=== PATIENT | female | born 1940 | race Caucasian/White ===

== ENCOUNTER 2017-03-18 15:45 | Emergency (ER) | payer MEDICARE ==
[2017-03-18 15:53] VITALS: BP 153/85
--- NOTE | 2017-03-18 16:39 | UC ---
Complaint Female HPI - HPI Summary HPI Summary: 77 y/o female presents to the urgent care c/o frequency on urination with pelvic pressure for the past 3 days. Pt reports she has HX of chronic back pain with degenerative disc disease and arthritis. She has mild lower back pain , but she states this is her usual for his chronic back pain. Pt also states she has HX of Pelvic prolapse with a pessary. she has a f/u appt for US on 04/05. Pt denies fever, burning on urination, vaginal discharge, SOB, chest pain , abdominal pain or pelvic pain, N/V/D. She wants to make sure she doesn't have a UTI. - History Of Current Complaint Chief Complaint: UCGU Stated Complaint: UTI Time Seen by Provider: 03/18/17 16:11 Hx Obtained From: Patient Hx Last Menstrual Period: N/A ?: No Onset/Duration: Lasting Days - 3, Still Present Timing: Constant, Lasting Days - 3 days Severity Initially: Mild Severity Currently: Mild Pain Intensity: 0 Pain Scale Used: 0-10 Numeric Aggravating Factor(s): Urination - frequency Alleviating Factor(s): Nothing Associated Signs And Symptoms: Positive: Negative. Negative: Fever, Back Pain, Vaginal Bleeding/Discharge, Vaginal Discharge, Nausea, Vomiting(# Of Episodes =) , Genital Swelling, Genital Blisters - Risk Factors Ectopic Risk Factor: Negative Ovarian Torsion Risk Factor: Negative - Allergies/Home Medications Allergies/Adverse Reactions: Allergies Allergy/AdvReac Type Severity Reaction Status Date / Time No Known Allergies Allergy Verified 03/18/17 15:53 PMH/Surg Hx/FS Hx/Imm Hx Previously Healthy: Yes Endocrine History: Dyslipidemia Cardiovascular History: Hypertension - Surgical History Surgical History: Yes Surgery Procedure, Year, and Place: TONSILECTOMY- 1945; CATARACTS - 2009; PESSARY 2010;THYROID NODULES THAT WAS TREATED WITH IODINE - 1999 - Family History Known Family History: Positive: Cardiac Disease, Hypertension - Social History Occupation: Retired Lives: With Family Alcohol Use: Occasionally Substance Use Type: None Smoking Status (MU): Former Smoker Type: Cigarettes When Did the Patient Quit Smoking/Using Tobacco: 50 years ago Household Exposure Type: Cigarettes - Immunization History Most Recent Influenza Vaccination: 2014/2015 Review of Systems Constitutional: Negative Skin: Negative Eyes: Negative ENT: Negative Respiratory: Negative Cardiovascular: Negative Gastrointestinal: Negative Genitourinary: Frequency - with hesitancy Motor: Negative Neurovascular: Negative Musculoskeletal: Negative Neurological: Negative Psychological: Negative Is Patient Immunocompromised?: No All Other Systems Reviewed And Are Negative: Yes Physical Exam Triage Information Reviewed: Yes Appearance: Well-Appearing, No Pain Distress, Well-Nourished Vital Signs: Initial Vital Signs Temp 98.8 F 03/18/17 15:49 Pulse 71 03/18/17 15:49 Resp 18 03/18/17 15:49 BP 153/85 03/18/17 15:49 Pulse Ox 99 03/18/17 15:49 Vital Signs Reviewed: Yes Eye Exam: Normal Eyes: Positive: Conjunctiva Clear - PERRLA, EOMI ENT Exam: Normal ENT: Positive: Normal ENT inspection, Hearing grossly normal, Pharynx normal, TMs normal Neck exam: Normal Neck: Positive: Supple, Nontender, No Lymphadenopathy Respiratory Exam: Normal Respiratory: Positive: Chest non-tender, Lungs clear, Normal breath sounds Cardiovascular Exam: Normal Cardiovascular: Positive: RRR, No Murmur, Pulses Normal, Brisk Capillary Refill Abdominal Exam: Normal Abdomen Description: Positive: Nontender, No Organomegaly, Soft. Negative: CVA Tenderness (R), CVA Tenderness (L) Bowel Sounds: Positive: Present Musculoskeletal Exam: Normal Musculoskeletal: Positive: Strength Intact, ROM Intact, No Edema Neurological Exam: Normal Psychological Exam: Normal Skin Exam: Normal Complaint Female Dx - Course Course Of Treatment: 77 y/o female presents to the urgent care c/o frequency on urination with pelvic pressure for the past 3 days. Pt reprots she has HX of chronic back pain with degenerative disc disease and arthritis. She has mild lower back pain, but she states this is her usual for his chronic back pain. Pt also states she has HX of Pelvic prolapse with a pessary. she has a f/u appt for US on 04/05/2017. Pt denies fever, burning on urination, vaginal discharge, SOB, chest pain, abdominal pain or pelvic pain, N/V/D. She wants to make sure she doesn't have a UTI. hx obtained. UA ordered, result: trace intact blood. PE WNL,Pt with negative CVA tenderness on examination. She states lower back pain is from her Degenerative disc disease and arthritis. Pt Rx Pyridium Po to alleviate Dysuria. Urine sent for culture. Pt advised if anything abnormal she will get a call from us for further treatment. Pt also advised If she develop severe back pain, fever and pain on urination to go immediately to the ER to r/o kidney stone. Pt BP elevated today, advised to decrease salt in your diet, monitor your BP, if it continues to be elevated please f/y with your PCP for further management. pt understood and agreed with plan of care and left the clinic ambulating, hemodinamically stable , A&OX3 - Differential Dx/Diagnosis Differential Diagnosis/HQI/PQRI: Cervicitis, Renal Colic, Ureteral Stone, Urinary Tract Infection, Other - lower back pain Provider Diagnoses: 1- Dysuria. 2-uncontrolled HTN Discharge - Discharge Plan Condition: Stable Disposition: HOME Prescriptions: Phenazopyridine TAB* [Pyridium 100 mg TAB*] 100 mg PO TID #6 tab Patient Education Materials: Dysuria (ED), Low Sodium Diet (ED) Referrals: Reese Meza MD [Primary Care Provider] - 2 Days Additional Instructions: 1- Please take Pyridium 100mg PO TID x 2 days to alleviate urinary symptoms. Increase increase fluid intake. 2- Urine was sent for culture if anything abnormal you will get a call from us for further treatment 3- If you develop severe back pain, fever please go immediately to the ER for further management 4-If symptoms do not improve please return to the urgent care or f/u with your PCP. 5-Start taking the tylenol q4-6hrs you have at home to alleviate your chronic back pain 6- Your BP today is elevated, please decrease salt in your diet, monitor your BP , if it continues to be elevated please f/y with your PCP for further management.
--- NOTE | 2017-03-20 18:46 | UC ---
Progress - Progress Note Progress Note: NO CHANGE
== END 2017-03-18 16:42 | disposition home or self-care (01) ==
LOC: UCEAST 15:45
DX: R30.0 Dysuria (principal); M54.5 Low back pain; I10 Essential (primary) hypertension; E78.5 Hyperlipidemia, unspecified; Z87.891 Personal history of nicotine dependence
CPT/HCPCS: 81003; 87086; 99212; G0463

== ENCOUNTER 2017-07-31 23:44 | Emergency (ER) | payer MEDICARE ==
[2017-08-01] MEDS ORDERED: Diltiazem IV* 5 MG/ML 5 ML VIAL (for loading dose/IV Push) (25 MG) IV SLOW PU ONE (00:28)
[2017-08-01 01:18] LABS: INR 0.9 (0.77-1.02)
[2017-08-01 01:20] LABS: EGFR Non-African American 52.4 (>60)
[2017-08-01 01:22] LABS: ABS Basophils 0.1 10^3/ul (0-0.2); ABS Eosinophils 0.2 10^3/ul (0-0.6); ABS Monocytes 0.7 10^3/ul (0-0.8); ABS Neutrophils 4.1 10^3/ul (1.5-7.7); ABS Nucleated RBC 0 10^3/ul; Eosinophil % 2.5 % (0-6); Hematocrit 49 % (35-47); Hemoglobin 17.2 g/dl (12.0-16.0); Lymphocyte % 28.7 % (25-47); Mean Corpuscular HGB Conc 35 g/dl (31-36); Mean Corpuscular Hemoglobin 34 pg (27-31); Mean Corpuscular Volume 95 fL (80-97); Mean Platelet Volume 9 um3 (7.4-10.4); Nucleated Red Blood Cells % 0.2; Platelet Count 176 10^3/ul (150-450); Red Cell Distribution Width 13 % (10.5-15)
[2017-08-01] MEDS ORDERED: Metoprolol Succinate XL TAB* 25 MG PO ONE (02:10)
[2017-08-01] MEDS ORDERED: Rivaroxaban TAB(*) 10 MG PO ONE (02:13)
[2017-08-01] MEDS ORDERED: Rivaroxaban TAB(*) 20 MG TAB PO ONE (03:00)
[2017-08-01 03:03] VITALS: BP 118/67
--- NOTE | 2017-08-01 04:39 | ED ---
Suellen Galeano Thomas, scribed for Tino Leiva on 08/01/17 at 0023 . Palpitations / Dysrhythmia - HPI Summary HPI Summary: The patient is a 77 year old female presenting to the emergency department complaining of palpitations that began yesterday at 23:10 when she was lying in bed. She does not have a history of A-Fib. She is on ASA 81. Past medical history includes HTN. The patient denies chest pain, shortness of breath, fever , cough, abdominal pain, or any pain. - History of Current Complaint Chief Complaint: EDDysrhythmPalp Time Seen by Provider: 08/01/17 00:13 Hx Obtained From: Patient Onset/Duration: Lasting Minutes - yesterday at 23:10, Still Present Timing: Constant Severity Currently: Moderate Character: Irregular Aggravating: Nothing Alleviating: Nothing Associated Signs & Symptoms: Negative - CP, SOB, fever, cough, abd pain - Allergy/Home Medications Allergies/Adverse Reactions: Allergies Allergy/AdvReac Type Severity Reaction Status Date / Time No Known Allergies Allergy Verified 06/18/17 09:18 PMH/Surg Hx/FS Hx/Imm Hx Endocrine/Hematology History: Reports: Hx Thyroid Disease Denies: Hx Diabetes Cardiovascular History: Reports: Hx Hypercholesterolemia, Hx Hypertension - BORDERLINE : MEDICATED, Other Cardiovascular Problems/Disorders - HIGH CHOLESTEROL Denies: Hx Pacemaker/ICD Respiratory History: Denies: Hx Asthma, Hx Chronic Obstructive Pulmonary Disease (COPD) GI History: Denies: Hx Ulcer History: Denies: Hx Dialysis, Hx Renal Disease Musculoskeletal History: Denies: Hx Osteoporosis Sensory History: Denies: Hx Hearing Aid Psychiatric History: Denies: Hx Panic Disorder - Cancer History Hx Chemotherapy: No Hx Radiation Therapy: No - Surgical History Surgery Procedure, Year, and Place: TONSILECTOMY- 1945; CATARACTS - 2009; PESSARY 2010;THYROID NODULES THAT WAS TREATED WITH IODINE - 2000 Infectious Disease History: No Infectious Disease History: Denies: Hx Hepatitis, Hx Human Immunodeficiency Virus (HIV), History Other Infectious Disease, Traveled Outside the [place] in Last 30 Days - Family History Known Family History: Positive: Cardiac Disease, Hypertension - Social History Lives: With Family Alcohol Use: Occasionally Substance Use Type: Reports: None Smoking Status (MU): Former Smoker Type: Cigarettes Review of Systems Negative: Fever Positive: Palpitations. Negative: Chest Pain Negative: Shortness Of Breath, Cough Negative: Abdominal Pain Negative: Other - any other pain All Other Systems Reviewed And Are Negative: Yes Physical Exam - Summary Physical Exam Summary: Appearance: Well appearing, no pain distress Skin: warm, dry, reflects adequate perfusion Head/face: normal Eyes: EOMI, KATHY ENT: normal Neck: supple, non-tender Respiratory: CTA, breath sounds present Cardiovascular: Irregularly irregular heart rate. Pulses symmetrical. Abdomen: non-tender, soft Bowel: present Musculoskeletal: normal, strength/ROM intact Neuro: normal, sensory motor intact, A&Ox3 Triage Information Reviewed: Yes Vital Signs On Initial Exam: Initial Vitals Temp Pulse Resp BP Pulse Ox 97.2 F 108 20 150/80 96 07/31/17 23:47 07/31/17 23:47 07/31/17 23:47 07/31/17 23:47 07/31/17 23:47 Vital Signs Reviewed: Yes Diagnostics - Vital Signs Vital Signs Temp Pulse Resp BP Pulse Ox 07/31/17 23:47 97.2 F 108 20 150/80 96 - Laboratory Lab Results: Lab Results 08/01/17 08/01/17 08/01/17 Range/Units 00:18 00:18 00:18 WBC 7.0 (3.5-10.8) 10^3/ul RBC 5.10 (4.0-5.4) 10^6/ul Hgb 17.2 H (12.0-16.0) g/dl Hct 49 H (35-47) % MCV 95 (80-97) fL MCH 34 H (27-31) pg MCHC 35 (31-36) g/dl RDW 13 (10.5-15) % Plt Count 176 (150-450) 10^3/ul MPV 9 (7.4-10.4) um3 Neut % (Auto) 58.4 (38-83) % Lymph % (Auto) 28.7 (25-47) % [place] % (Auto) 9.7 H (1-9) % Eos % (Auto) 2.5 (0-6) % Baso % (Auto) 0.7 (0-2) % Absolute Neuts (auto) 4.1 (1.5-7.7) 10^3/ul Absolute Lymphs (auto) 2.0 (1.0-4.8) 10^3/ul Absolute Monos (auto) 0.7 (0-0.8) 10^3/ul Absolute Eos (auto) 0.2 (0-0.6) 10^3/ul Absolute Basos (auto) 0.1 (0-0.2) 10^3/ul Absolute Nucleated RBC 0 10^3/ul Nucleated RBC % 0.2 INR (Anticoag Therapy) (0.77-1.02) Sodium 134 (133-145) mmol/L Potassium TNP Chloride 96 L (101-111) mmol/L Carbon Dioxide 32 (22-32) mmol/L Anion Gap 6 (2-11) mmol/L BUN 23 (6-24) mg/dL Creatinine 1.02 H (0.51-0.95) mg/dL Est GFR ( Amer) 67.4 (>60) Est GFR (Non-Af Amer) 52.4 (>60) BUN/Creatinine Ratio 22.5 H (8-20) Glucose 121 H (70-100) mg/dL Calcium 9.7 (8.6-10.3) mg/dL Magnesium 2.4 (1.9-2.7) mg/dL Total Bilirubin 0.60 (0.2-1.0) mg/dL AST TNP ALT 21 (7-52) U/L Alkaline Phosphatase 73 (34-104) U/L Troponin I 0.00 (<0.04) ng/mL B-Natriuretic Peptide 92 ( - 100) pg/mL Total Protein 7.8 (6.4-8.9) g/dL Albumin 4.8 (3.2-5.2) g/dL Globulin 3.0 (2-4) g/dL Albumin/Globulin Ratio 1.6 (1-3) TSH 6.49 H (0.34-5.60) mcIU/mL 08/01/17 08/01/17 Range/Units 00:18 02:05 WBC (3.5-10.8) 10^3/ul RBC (4.0-5.4) 10^6/ul Hgb (12.0-16.0) g/dl Hct (35-47) % MCV (80-97) fL MCH (27-31) pg MCHC (31-36) g/dl RDW (10.5-15) % Plt Count (150-450) 10^3/ul MPV (7.4-10.4) um3 Neut % (Auto) (38-83) % Lymph % (Auto) (25-47) % [place] % (Auto) (1-9) % Eos % (Auto) (0-6) % Baso % (Auto) (0-2) % Absolute Neuts (auto) (1.5-7.7) 10^3/ul Absolute Lymphs (auto) (1.0-4.8) 10^3/ul Absolute Monos (auto) (0-0.8) 10^3/ul Absolute Eos (auto) (0-0.6) 10^3/ul Absolute Basos (auto) (0-0.2) 10^3/ul Absolute Nucleated RBC 10^3/ul Nucleated RBC % INR (Anticoag Therapy) 0.90 (0.77-1.02) Sodium (133-145) mmol/L Potassium 3.5 Chloride (101-111) mmol/L Carbon Dioxide (22-32) mmol/L Anion Gap (2-11) mmol/L BUN (6-24) mg/dL Creatinine (0.51-0.95) mg/dL Est GFR ( Amer) (>60) Est GFR (Non-Af Amer) (>60) BUN/Creatinine Ratio (8-20) Glucose (70-100) mg/dL Calcium (8.6-10.3) mg/dL Magnesium (1.9-2.7) mg/dL Total Bilirubin (0.2-1.0) mg/dL AST 16 ALT (7-52) U/L Alkaline Phosphatase (34-104) U/L Troponin I (<0.04) ng/mL B-Natriuretic Peptide ( - 100) pg/mL Total Protein (6.4-8.9) g/dL Albumin (3.2-5.2) g/dL Globulin (2-4) g/dL Albumin/Globulin Ratio (1-3) TSH (0.34-5.60) mcIU/mL Result Diagrams: 08/01/17 00:18 08/01/17 02:05 Lab Statement: Any lab studies that have been ordered have been reviewed, and results considered in the medical decision making process. - Radiology CXR Xray Interpretation: No Acute Changes - Negative Radiology Interpretation Completed By: ED Physician - EKG 23:54 07/31 Cardiac Rate: Tachycardia EKG Rhythm: Atrial Fibrillation - at 122 BPM EKG Interpretation: A-Fib with RVR 00:44 08/01 Cardiac Rate: NL EKG Rhythm: Sinus Rhythm - at 65 BPM Course/Dx - Course Assessment/Plan: The patient is a 77 year old female presenting to the emergency department complaining of palpitations that began yesterday at 23:10 when she was lying in bed. In the ED course the patient was given Diltiazem, metoprolol, and Xarelto. Bloodwork was obtained. First EKG showed A-Fib with RVR and second EKG showed sinus rhythm. I consulted with Dr. Carlos, cardiology, who recommends primary care follow up. The patient was discharged with a prescription for Xarelto. - Diagnoses Differential Diagnosis/HQI/PQRI: Positive: Other - new onset a fib/palpitations Provider Diagnoses: Paroxysmal A-fib - Physician Notifications Discussed Care Of Patient With: Sandor Carlos Time Discussed With Above Provider: 02:00 Instructed by Provider To: Other - Dr. Carlos, cardiology, recommends that the patient be discharged for primary care follow up. He recommends beta blockers and Xarelto. Discharge - Discharge Plan Condition: Stable Disposition: HOME Prescriptions: Rivaroxaban TAB(*) [Xarelto 20 mg] 20 mg PO DAILY #30 tab Patient Education Materials: A-fib (Atrial Fibrillation) (ED) Referrals: Reese Meza MD [Primary Care Provider] - 3 Days Additional Instructions: Follow up with Dr. Meza in the next three days. Return to the emergency department for any new or worsening symptoms. The documentation as recorded by the Suellen fernández Thomas accurately reflects the service I personally performed and the decisions made by me, Tino Leiva.
--- NOTE | 2017-08-01 08:04 | RAD ---
HISTORY: Shortness of breath COMPARISONS: February 25, 2010 VIEWS: 1: frontal portable view of the chest at 12:40 AM FINDINGS: LINES AND TUBES: None. CARDIOMEDIASTINAL SILHOUETTE: The cardiomediastinal silhouette is normal for portable technique. PLEURA: The costophrenic angles are sharp. No pleural abnormalities are noted. LUNG PARENCHYMA: The lungs are clear. ABDOMEN: The upper abdomen is clear. There is no subphrenic gas. BONES AND SOFT TISSUES: No bone or soft tissue abnormalities are noted. IMPRESSION: NO ACTIVE CARDIOPULMONARY DISEASE.
== END 2017-08-01 03:03 | disposition home or self-care (01) ==
LOC: ED 23:44
DX: I48.0 Paroxysmal atrial fibrillation (principal); Z79.82 Long term (current) use of aspirin; R03.0 Elevated blood-pressure reading, without diagnosis of hypertension; E07.9 Disorder of thyroid, unspecified; E78.00 Pure hypercholesterolemia, unspecified; Z98.49 Cataract extraction status, unspecified eye; Z87.891 Personal history of nicotine dependence
CPT/HCPCS: 36415; 71045; 80053; 83735; 83880; 84443; 84484; 85025; 85610; 93005; 99283; A9270-GY

== ENCOUNTER 2017-11-05 19:21 | Emergency (ER) | payer MEDICARE ==
--- NOTE | 2017-11-05 20:40 | UC ---
Hypertension HPI - HPI Summary HPI Summary: 77 yo female happened to check her BP today and it was high all repeats high as well asymptomatic - History of Current Complaint Chief Complaint: UCGeneralIllness Stated Complaint: HIGH BLOOD PRESSURE Time Seen by Provider: 11/05/17 20:40 Hx Obtained From: Patient Hx Last Menstrual Period: N/A Onset/Duration: Other - unknown Timing: Constant Aggravating Factor(s): Nothing Alleviating Factor(s): Nothing Associated Signs And Symptoms: Positive: Negative Current Medications: Ca Channel Patricia, Diuretic - Allergies/Home Medications Allergies/Adverse Reactions: Allergies Allergy/AdvReac Type Severity Reaction Status Date / Time No Known Allergies Allergy Verified 11/05/17 19:30 PMH/Surg Hx/FS Hx/Imm Hx Previously Healthy: Yes Cardiovascular History: Hypertension, Atrial Fibrillation - Surgical History Surgical History: Yes Surgery Procedure, Year, and Place: TONSILECTOMY- 1944; CATARACTS - 2009; PESSARY 2010;THYROID NODULES THAT WAS TREATED WITH IODINE - 1999 - Family History Known Family History: Positive: Cardiac Disease, Hypertension - Social History Alcohol Use: Occasionally Substance Use Type: None Smoking Status (MU): Former Smoker Type: Cigarettes When Did the Patient Quit Smoking/Using Tobacco: 50 years ago Household Exposure Type: Cigarettes - Immunization History Most Recent Influenza Vaccination: 2014/2015 Review of Systems Constitutional: Negative Skin: Negative Eyes: Negative ENT: Negative Respiratory: Negative Cardiovascular: Negative Gastrointestinal: Negative Genitourinary: Negative Motor: Negative Neurovascular: Negative Musculoskeletal: Negative Neurological: Negative Psychological: Negative Is Patient Immunocompromised?: No All Other Systems Reviewed And Are Negative: Yes Physical Exam Triage Information Reviewed: Yes Appearance: Well-Appearing, No Pain Distress, Well-Nourished Vital Signs: Initial Vital Signs Temp 98.1 F 11/05/17 19:27 Pulse 79 11/05/17 19:27 Resp 12 11/05/17 19:27 BP 193/98 11/05/17 19:27 Pulse Ox 99 11/05/17 19:27 Vital Signs Reviewed: Yes Eyes: Positive: Conjunctiva Clear ENT: Positive: Hearing grossly normal. Negative: Nasal congestion, Nasal drainage, Muffled voice, Hoarse voice Respiratory: Positive: Lungs clear, Normal breath sounds, No respiratory distress, No accessory muscle use Cardiovascular: Positive: RRR, No Murmur Musculoskeletal: Positive: ROM Intact, No Edema Neurological: Positive: Alert Psychological Exam: Normal Skin Exam: Normal Hypertension Course/Dx - Differential Dx/Diagnosis Provider Diagnoses: elevated BP Discharge - Sign-Out/Discharge Documenting (check all that apply): Discharge/Admit/Transfer - Discharge Plan Condition: Stable Disposition: HOME Patient Education Materials: Hypertension (ED) Referrals: Reese Meza MD [Primary Care Provider] - 1 Day Additional Instructions: take another HCTZ (water pill) when you get home call your MD jairo AM to discuss follow up - Billing Disposition and Condition Condition: STABLE Disposition: HOME
[2017-11-05 21:07] VITALS: BP 190/91
== END 2017-11-05 21:24 | disposition home or self-care (01) ==
LOC: UCEAST 19:21
DX: I10 Essential (primary) hypertension (principal); I48.91 Unspecified atrial fibrillation; Z79.01 Long term (current) use of anticoagulants; Z87.891 Personal history of nicotine dependence
CPT/HCPCS: 99211; G0463

== ENCOUNTER 2019-01-07 17:23 | Emergency (ER) | payer MEDICARE ==
[2019-01-07 17:43] VITALS: BP 144/80
--- NOTE | 2019-01-07 19:25 | UC ---
Skin Complaint HPI - HPI Summary HPI Summary: 78 y/o female presents to the urgent care c/o Scrapped R hand on Sunday; states that last night becoming oozy, warm; denies any fever or pain. - History of Current Complaint Chief Complaint: UCSkin Time Seen by Provider: 01/07/19 19:23 Stated Complaint: RIGHT HAND CUT Hx Obtained From: Patient Hx Last Menstrual Period: N/A Pain Intensity: 0 - Allergy/Home Medications Allergies/Adverse Reactions: Allergies Allergy/AdvReac Type Severity Reaction Status Date / Time No Known Allergies Allergy Verified 01/07/19 17:36 Home Medications: Home Medications Cod Liver Oil 1 cap PO DAILY 01/07/19 [History Confirmed 01/07/19] PMH/Surg Hx/FS Hx/Imm Hx - Surgical History Surgical History: Yes Surgery Procedure, Year, and Place: TONSILECTOMY- 1944; CATARACTS - 2009; PESSARY 2010;THYROID NODULES THAT WAS TREATED WITH IODINE - 1999 - Family History Known Family History: Positive: Unknown, Cardiac Disease, Hypertension - Social History Alcohol Use: Weekly Substance Use Type: None Smoking Status (MU): Former Smoker Type: Cigarettes When Did the Patient Quit Smoking/Using Tobacco: 50 years ago Household Exposure Type: Cigarettes - Immunization History Most Recent Influenza Vaccination: Physical Exam Vital Signs: Initial Vital Signs Temp 98.7 F 01/07/19 17:38 Pulse 68 01/07/19 17:38 Resp 18 01/07/19 17:38 BP 144/80 01/07/19 17:38 Pulse Ox 97 01/07/19 17:38 Course/Dx - Differential Diagnoses - Skin Complaint Differential Diagnoses: Abscess, Cellulitis, Contact Dermatitis, MRSA, Other - infected abrasion - Diagnoses Provider Diagnosis: Cellulitis of right hand, Abrasion of right hand, Uncontrolled hypertension Discharge - Sign-Out/Discharge Documenting (check all that apply): Patient Departure - d/C home All imaging exams completed and their final reports reviewed: No Studies - Discharge Plan Condition: Stable Disposition: HOME Prescriptions: Cephalexin CAP* [Keflex CAP*] 500 mg PO TID #21 cap Mupirocin 2% OINT* [Bactroban 2 % Oint*] 1 applic TOPICAL BID #1 tube Patient Education Materials: Cellulitis (ED) Referrals: Cynthia Naranjo MD [Primary Care Provider] - 3 Days Additional Instructions: 1-Please take full course of Antibiotic. Take yogurt w/ probiotic or culturelle to protect your GI system 2- If redness and swelling doubles in size beyond after 48 hrs of taking antibiotic and fever develops please go to the ER immediately. 3-Avoid standing too much flexion of your hand. keep wound clean and dry. Apply bactroban oint as directed to alleviate symptoms. 4-Please F/u with your PCP in 3 days if not improvement of symptoms for further evaluation and treatment. 5- Your BP is elevated today. please decrease salt in your diet, monitor BP and if it continues to be elevated please f/u with your PCP for further management. - Billing Disposition and Condition Condition: STABLE Disposition: Home
== END 2019-01-07 20:13 | disposition home or self-care (01) ==
LOC: UCEAST 17:23
DX: S60.511A Abrasion of right hand, initial encounter (principal); L03.113 Cellulitis of right upper limb; I10 Essential (primary) hypertension; Z87.891 Personal history of nicotine dependence; X58.XXXA Exposure to other specified factors, initial encounter; Y92.9 Unspecified place or not applicable
CPT/HCPCS: 99212; G0463